=== PATIENT | male | born 1980 | race Caucasian/White ===

== ENCOUNTER 2021-01-10 11:27 | Emergency (ER) | payer SELFPAY ==
[~2021-01-10] VITALS: Ht 185.4 cm; Wt 90.9 kg
[2021-01-10 11:32] VITALS: Ht 185.4 cm; Wt 90.9 kg
[2021-01-10 12:50] LABS: BASOPHILS 0.1 % (0-2); EOSINOPHILS 0 % (0-7); HEMATOCRIT 50.5 % (42.0-54.0); HEMOGLOBIN 17.8 g/dL (13.5-17.5); IMMATURE GRANULOCYTES 0.1 % (0-5); LYMPHOCYTE ABS# 0.62 10x3/uL (1.32-3.57); LYMPHOCYTES 7.9 % (15-50); MCHC 35.2 g/dL (31.0-37.0); MCV 96.6 fL (80.0-100.0); MEAN PLATELET VOLUME 9.9 fL (7.4-10.4); MONOCYTES 6.6 % (2-11); NEUTROPHIL ABS# 6.68 10x3/uL (1.78-5.38); NEUTROPHILS 85.3 % (40-80); PLATELET COUNT 176 10x3/uL (130-400); RBC 5.23 10x6/uL (4.20-6.10); RDW 13.9 % (11.5-14.5); WBC 7.8 10x3/uL (4.8-10.8)
[2021-01-10 12:57] LABS: CALC OSMOLALITY 275 mosm/kg (275-300); CALCIUM 8.2 mg/dL (8.5-10.1); CARBON DIOXIDE 20.8 mmol/L (21.0-32.0); CHLORIDE - SERUM 94 mmol/L (98-107); CREATININE - SERUM 0.9 mg/dL (0.6-1.3); GLUCOSE 205 mg/dL (74-106); POTASSIUM - SERUM 5.2 mmol/L (3.5-5.1); SODIUM 132 mmol/L (136-145); UREA NITROGEN 26 mg/dL (7-18); eGFR NON AFRICAN AMERICAN > 90 mL/min (90-120)
[2021-01-10 13:02] LABS: ALBUMIN 3.6 g/dL (3.4-5.0); ALKALINE PHOSPHATASE 65 U/L (30-120); ALT (SGPT) 167 U/L (10-68); BILIRUBIN - TOTAL 0.89 mg/dL (0.2-1.3); MAGNESIUM - SERUM 2.3 mg/dL (1.8-2.4)
== END 2021-01-10 15:06 | disposition left against medical advice (07) ==
LOC: D.ER 11:27
PROVIDERS: Emergency Medicine
DX: F10.129 Alcohol abuse with intoxication, unspecified (principal); S90.519A Abrasion, unspecified ankle, initial encounter; R74.01 Elevation of levels of liver transaminase levels; E87.5 Hyperkalemia; E87.1 Hypo-osmolality and hyponatremia; R73.9 Hyperglycemia, unspecified; Y90.6 Blood alcohol level of 120-199 mg/100 ml

== ENCOUNTER 2021-01-12 15:46 | Emergency (ER) | payer SELFPAY ==
[~2021-01-12] VITALS: Ht 185.4 cm; Wt 90.7 kg
[2021-01-12 15:53] VITALS: Ht 185.4 cm; Wt 90.7 kg
[2021-01-12 16:16] LABS: BASOPHILS 0.4 % (0-2); EOSINOPHILS 1.4 % (0-7); HEMATOCRIT 40.7 % (42.0-54.0); HEMOGLOBIN 14.5 g/dL (13.5-17.5); IMMATURE GRANULOCYTES 0.2 % (0-5); MCH 34.6 pg (26.0-34.0); MCHC 35.6 g/dL (31.0-37.0); MCV 97.1 fL (80.0-100.0); MEAN PLATELET VOLUME 9.9 fL (7.4-10.4); MONOCYTES 11.8 % (2-11); NEUTROPHIL ABS# 3.12 10x3/uL (1.78-5.38); NEUTROPHILS 62.2 % (40-80); RBC 4.19 10x6/uL (4.20-6.10); RDW 14.1 % (11.5-14.5)
[2021-01-12 16:20] LABS: PLATELET COUNT 107 10x3/uL (130-400)
[2021-01-12 16:26] LABS: CALC OSMOLALITY 267 mosm/kg (275-300); CALCIUM 7.9 mg/dL (8.5-10.1); CARBON DIOXIDE 27.1 mmol/L (21.0-32.0); CHLORIDE - SERUM 98 mmol/L (98-107); CREATININE - SERUM 0.9 mg/dL (0.6-1.3); SODIUM 134 mmol/L (136-145); UREA NITROGEN 15 mg/dL (7-18); eGFR NON AFRICAN AMERICAN > 90 mL/min (90-120)
[2021-01-12 16:29] LABS: GLUCOSE 87 mg/dL (74-106)
[2021-01-12 16:32] LABS: ALBUMIN 3.1 g/dL (3.4-5.0); ALKALINE PHOSPHATASE 55 U/L (30-120); ALT (SGPT) 148 U/L (10-68); BILIRUBIN - TOTAL 0.82 mg/dL (0.2-1.3); MAGNESIUM - SERUM 2.2 mg/dL (1.8-2.4); PROTEIN - SERUM 6.1 g/dL (6.4-8.2)
[2021-01-12 16:47] LABS: BILIRUBIN NEGATIVE (NEGATIVE); KETONE NEGATIVE (NEGATIVE); NITRITE NEGATIVE (NEGATIVE); UROBILINOGEN NORMAL mg/dL (< 2)
[2021-01-12 16:51] LABS: UDS - AMPHET NEGATIVE QUAL (NEGATIVE); UDS - BARB NEGATIVE QUAL (NEGATIVE); UDS - BENZO NEGATIVE QUAL (NEGATIVE); UDS - COCAINE NEGATIVE QUAL (NEGATIVE); UDS - OPIATE NEGATIVE QUAL (NEGATIVE); UDS - PCP NEGATIVE QUAL (NEGATIVE); UDS - THC NEGATIVE QUAL (NEGATIVE)
[2021-01-12 19:27] VITALS: BP 124/83
== END 2021-01-12 19:27 | disposition home or self-care (01) ==
LOC: D.ER 15:46
PROVIDERS: Emergency Medicine
DX: F10.229 Alcohol dependence with intoxication, unspecified (principal); Y90.7 Blood alcohol level of 200-239 mg/100 ml; F32.9 Major depressive disorder, single episode, unspecified; I10 Essential (primary) hypertension; Z72.0 Tobacco use